=== PATIENT | female | born 1970 | race Two or more races ===

== ENCOUNTER 2017-10-21 14:35 | Emergency (ER) | payer OTHER ==
--- NOTE | 2017-10-21 15:09 | EDPHY ---
General - History Smoking Status: Never smoked Time Seen by Provider: 10/21/17 15:04 Narrative: CHIEF COMPLAINT: Chest pain, leg pain, nausea, fever HISTORY OF PRESENT ILLNESS: Patient presents with complaints of chest pain, nausea, epigastric abdominal pain, leg pain and weakness. All of the symptoms except nausea started 4 days ago. These were gradual onset. Constant duration. They do wax and wane. Mild -to-moderate at times. Chest pain is retrosternal and does radiate to the back. Weakness of the lower legs is described as mild and as if they felt very heavy. She has been able to ambulate. She has some nausea that developed yesterday without vomiting. She has felt subjectively febrile. Mild headache yesterday. Today she feels only some epigastric discomfort and feels very concerned, scared about her symptoms. No modifying factors. No trauma or injury. No recent travel or surgery. No history of venous thrombolic event or NE. She reports history of aortic regurgitation with echocardiogram done 2 years ago. No cardiology follow-up. No other associated complaints or modifying factors HPI obtained using the hospital's certified Martiniquais vehicle trimmer at bedside in patient's room. REVIEW OF SYSTEMS: 10 systems were reviewed and negative with the exception of the elements mentioned in the history of present illness. PCP: Dr. Ga Dillard SPECIALISTS: None PAST MEDICAL HISTORY: Hypertension, [id number] diabetic, aortic regurgitation, depression PAST SURGICAL HISTORY: Cholecystectomy. x1 SOCIAL HISTORY: Never smoker. Lives independently. Occasionally works FAMILY HISTORY: Noncontributory EXAMINATION General Appearance: Alert, no distress, tearful Head: normocephalic, atraumatic Eyes: Pupils equal and round, no conjunctival pallor or injection ENT, Mouth: Mucous membranes moist Neck: Normal inspection, supple, non-tender Respiratory: Lungs are clear to auscultation. No wheezing rhonchi or crackles Cardiovascular: Regular rate and rhythm. Grade 1 diastolic murmur. Excellent signs of perfusion extremities. Gastrointestinal: Obese Abdomen is soft and nondistended. There is mild epigastric tenderness. Bowel sounds are appreciated in all 4 quadrants with no tympany rigidity. No palpable mass. No guarding. Back: non-tender, no bony abnormalities Neurological: A&O, nonfocal, normal gait Skin: Warm and dry, no rash Extremities: Nontender, no pedal edema Psychiatric: Mood and affect normal DIFFERENTIAL DIAGNOSES: Including but not limited to ACS, PE, pneumonia, dissection, pericarditis, pneumonia, gastritis, pancreatitis MDM: 3:00 p.m. Chest and epigastric pain of 3-4 days duration with some complaints of weakness. Neuro exam is within normal limits with no appreciated weakness. Her sensory is symmetric. She is mildly tachycardic and appears to be somewhat anxious and tearful. I have ordered cardiac laboratory studies. EKG has been obtained and reviewed by Dr. Cannon. Other than mild tachycardia, she is in no acute distress vital signs stable. She is afebrile. Heart score: 1, low risk 4:00 p.m. Laboratory studies are all within normal limits with mild elevated glucose. Troponin is negative. Chest x-ray unremarkable. Dr. Cannon has evaluated the patient. He does feel she is stable for discharge home. This did upset her and she became more anxious. Thus we did discuss repeat troponin 2 hr. This will be done at 4:55 p.m.. I have also ordered medications for her possible gastritis/reflux. 5:05 p.m. 2 hr, repeat troponin is negative. It is actually slightly lower than the original troponin. I re-evaluated the patient at this time with metal drawer at bedside. She is feeling much better at this time. We did use the shared decision making pathway for VU. She is comfortable with being discharged home. We discussed discharge home with referral to Cardiology and Gastroenterology and she is comfortable this plan. I have answered all of her questions. She will be discharged home stable condition. MDM was discussed using the hospital's certified Martiniquais vehicle trimmer at bedside in patient's room. SUPERVISION: Patient was evaluated and examined in conjunction with my secondary supervising physician as documented. We have both examined the patient. (Nicho Toledo) - Diagnostics Imaging Results: Imaging Impressions Chest X-Ray 10/21/17 15:05 Impression: Hypoventilation. Clear. Discussion: I did evaluate this patient independently. She is well appearing. We agreed to do a 2nd troponin. I also recommend she follow up with gastrology for her heartburn type symptoms and suggested that we start her on a PPI. (Adin Cannon) - Objective Vital Signs: Initial Vital Signs Temperature (C) 37.1 C 10/21/17 14:37 Heart Rate 96 10/21/17 14:37 Respiratory Rate 10/21/17 14:37 Blood Pressure 125/82 H 10/21/17 14:37 O2 Sat (%) 94 10/21/17 14:37 O2 Delivery Mode Room Air Allergies/Adverse Reactions: No Known Allergies Allergy (Verified 10/21/17 14:41) Home Medications: Medication Instructions Recorded Lisinopril [Zestril 20 mg (*)] 40 mg PO DAILY 12/18/12 metFORMIN HCL [Glucophage 500 mg 500 mg PO DAILY 12/18/12 (*)] Propranolol HCl [Inderal 20mg (*)] 20 mg PO BID 01/30/16 traZODone [traZODONE 50MG (*)] 50 mg PO HS PRN 02/14/16 Chlorthalidone 10/21/17 Ranitidine HCl [Zantac 75] 75 mg PO BID #30 tablet 10/21/17 Sucralfate [Carafate Oral Liquid 10 ml PO QID PRN #240 ml 10/21/17 100 mg/ml] Laboratory Results: Laboratory Results 10/21/17 14:53 10/21/17 14:53 10/21/17 10/21/17 10/21/17 16:53 14:55 14:53 WBC RBC Hgb Hct MCV MCH MCHC RDW Plt Count MPV Neut % (Auto) Lymph % (Auto) [place] % (Auto) Eos % (Auto) Baso % (Auto) Nucleat RBC Rel Count Absolute Neuts (auto) Absolute Lymphs (auto) Absolute Monos (auto) Absolute Eos (auto) Absolute Basos (auto) Absolute Nucleated RBC Immature Gran % Immature Gran # PT INR APTT D-Dimer Sodium Potassium Chloride Carbon Dioxide Anion Gap BUN Creatinine Estimated GFR Glucose Calcium Total Bilirubin Conjugated Bilirubin Unconjugated Bilirubin AST ALT Alkaline Phosphatase POC Troponin I 0.00 ng/mL ng/mL 0.01 ng/mL ng/mL (0.00-0.08) (0.00-0.08) Total Protein Albumin Lipase Beta HCG, Qual NEGATIVE 10/21/17 10/21/17 10/21/17 14:53 14:53 14:53 WBC 6.94 10^3/uL 10^3/uL (3.80-9.50) RBC 4.42 10^6/uL 10^6/uL (4.18-5.33) Hgb 12.4 g/dL L g/dL (12.6-16.3) Hct 37.5 % L % (38.0-47.0) MCV 84.8 fL fL (81.5-99.8) MCH 28.1 pg pg (27.9-34.1) MCHC 33.1 g/dL g/dL (32.4-36.7) RDW 16.4 % H % (11.5-15.2) Plt Count 323 10^3/uL 10^3/uL (150-400) MPV 10.8 fL fL (8.7-11.7) Neut % (Auto) 67.1 % % (39.3-74.2) Lymph % (Auto) 26.8 % % (15.0-45.0) [place] % (Auto) 5.0 % % (4.5-13.0) Eos % (Auto) 0.4 % L % (0.6-7.6) Baso % (Auto) 0.6 % % (0.3-1.7) Nucleat RBC Rel Count 0.0 % % (0.0-0.2) Absolute Neuts (auto) 4.65 10^3/uL 10^3/uL (1.70-6.50) Absolute Lymphs (auto) 1.86 10^3/uL 10^3/uL (1.00-3.00) Absolute Monos (auto) 0.35 10^3/uL 10^3/uL (0.30-0.80) Absolute Eos (auto) 0.03 10^3/uL 10^3/uL (0.03-0.40) Absolute Basos (auto) 0.04 10^3/uL 10^3/uL (0.02-0.10) Absolute Nucleated RBC 0.00 10^3/uL 10^3/uL (0-0.01) Immature Gran % 0.1 % % (0.0-1.1) Immature Gran # 0.01 10^3/uL 10^3/uL (0.00-0.10) PT 13.7 SEC SEC (12.0-15.0) INR 1.03 (0.83-1.16) APTT 25.2 SEC SEC (23.0-38.0) D-Dimer 0.30 ug/mLFEU ug/mLFEU (0.00-0.50) Sodium 140 mEq/L mEq/L (135-145) Potassium 3.4 mEq/L mEq/L (3.3-5.0) Chloride 105 mEq/L mEq/L (97-110) Carbon Dioxide 26 mEq/l mEq/l (22-31) Anion Gap 9 mEq/L mEq/L (8-16) BUN 23 mg/dL mg/dL (7-23) Creatinine 0.8 mg/dL mg/dL (0.6-1.0) Estimated GFR > 60 Glucose 145 mg/dL H mg/dL (70-100) Calcium 9.7 mg/dL mg/dL (8.5-10.4) Total Bilirubin 0.6 mg/dL mg/dL (0.1-1.4) Conjugated Bilirubin 0.0 mg/dL mg/dL (0.0-0.5) Unconjugated Bilirubin 0.6 mg/dL mg/dL (0.0-1.1) AST 26 IU/L IU/L (14-46) ALT 32 IU/L IU/L (9-52) Alkaline Phosphatase 61 IU/L IU/L (38-126) POC Troponin I Total Protein 7.8 g/dL g/dL (6.3-8.2) Albumin 4.5 g/dL g/dL (3.5-5.0) Lipase 174 IU/L IU/L (23-300) Beta HCG, Qual Medications Given: Discontinued Medications Al Hydroxide/Mg Hydroxide (Maalox Susp) 30 ml PO ONCE ONE Stop: 10/21/17 16:32 Last Admin: 10/21/17 16:56 Dose: 30 ml Famotidine (Pepcid) 20 mg IVP EDNOW ONE Stop: 10/21/17 16:32 Last Admin: 10/21/17 16:54 Dose: 20 mg Hyoscyamine Sulfate (Levsin, Hyomax-Sl) 0.25 mg PO ONCE ONE Stop: 10/21/17 16:32 Last Admin: 10/21/17 16:52 Dose: 0.25 mg Lidocaine (Lidocaine 2% Viscous) 15 ml PO ONCE ONE Stop: 10/21/17 16:32 Last Admin: 08/31/18 16:56 Dose: 15 ml Lorazepam (Ativan Injection) 0.5 mg IVP EDNOW ONE Stop: 10/21/17 16:41 Last Admin: 10/21/17 16:52 Dose: 0.5 mg Point of Care Test Results: Chemistry 10/21/17 10/21/17 16:53 14:55 POC Troponin I 0.00 ng/mL ng/mL 0.01 ng/mL ng/mL (0.00-0.08) (0.00-0.08) Departure - Departure Disposition: Home, Routine, Self-Care Clinical Impression: Epigastric pain Gastritis Qualifiers: Gastritis type: unspecified gastritis Chronicity: acute Gastritis bleeding: without bleeding Qualified Code(s): K29.00 - Acute gastritis without bleeding Chest pain Qualifiers: Chest pain type: unspecified Qualified Code(s): R07.9 - Chest pain, unspecified Condition: Good Instructions: Chest Pain (ED), Peptic Ulcer (ED), Diet for Stomach Ulcers and Gastritis (ED), Epigastric Pain (ED) Additional Instructions: 1. Contact your primary care physician for outpatient follow-up next week. 2. Contact Cardiology and Gastroenterology as provided for outpatient workups 3. Medications as prescribed as needed 4. Return to emergency department for return of chest pain, exertional chest pain, radiating pain, sweating, vomiting or fever 1. Kwesi marialuisa katty de seguimiento con sanchez doctor la proxima semana. 2. Kwesi seguimiento con un Cardiologo y un Gatroenterologo. 3. [place] el medicamento recetado a joi lo necesite 4. Regrese a la baldomero de emergencia si tiene dolor de pecho, dolor en el pecho del exertional, irradiando dolor, sudoracin, vmitos o fiebre. Referrals: Ga Dillard MD [Primary Care Provider] - As per Instructions Rodrick Mcfadden MD [Medical Doctor] - As per Instructions Miguel A Orlando MD [Medical Doctor] - As per Instructions Stand Alone Forms: Work Excuse Prescriptions: Ranitidine HCl [Zantac 75] 75 mg PO BID #30 tablet Sucralfate [Carafate Oral Liquid 100 mg/ml] 10 ml PO QID PRN #240 ml PRN Reason: abdominal pain Print Language: Martiniquais
[2017-10-21 15:12] LABS: PLATELET COUNT 323 10^3/uL (150-400)
[2017-10-21 15:24] LABS: INR 1.03 (0.83-1.16); PROTIME(PATIENT) 13.7 SEC (12.0-15.0)
--- NOTE | 2017-10-21 15:27 | CPEKG ---
Test Reason : OPEN Blood Pressure : / mmHG Vent. Rate : 097 BPM Atrial Rate : 097 BPM P-R Int : 148 ms QRS Dur : 091 ms QT Int : 344 ms P-R-T Axes : 034 -32 013 degrees QTc Int : 437 ms Sinus rhythm Left axis deviation Confirmed by Adin Cannon ([id number]) on 10/21/2017 3:26:34 PM Referred By: Confirmed By:Adin Cannon
[2017-10-21] MEDS ORDERED: HYOSCYAMINE SULFATE 0.125 MG TAB PO ONE (16:31)
[2017-10-21] MEDS ORDERED: MAG HYDROX/AL HYDROX/SIMETH 30 ML UDCUP PO ONE (16:31)
[2017-10-21] MEDS ORDERED: FAMOTIDINE 20 MG/2 ML SDV IVP ONE (16:31)
[2017-10-21] MEDS ORDERED: LIDOCAINE 2% VISCOUS 15 ML UDCUP PO ONE (16:31)
[2017-10-21] MEDS ORDERED: LORazepam 2 MG/ML INJ IVP ONE (16:40)
[2017-10-21 17:03] VITALS: BP 131/79
== END 2017-10-21 17:34 | disposition home or self-care (01) ==
DX: K29.70 Gastritis, unspecified, without bleeding (principal); I10 Essential (primary) hypertension; E11.9 Type 2 diabetes mellitus without complications
CPT/HCPCS: 84484-PO; 96374; J2060

== ENCOUNTER 2018-01-30 08:08 | Emergency (ER) | payer OTHER ==
[2018-01-30 08:19] VITALS: BP 117/57
--- NOTE | 2018-01-30 08:19 | EDPHY ---
H & P Stated Complaint: got aWC injury/got adhesive spray in face accidentally yesterday/nausea Time Seen by Provider: 01/30/18 08:18 - Personal History LMP (Females 10-55): 22-28 Days Ago Current Tetanus Diphtheria and Acellular Pertussis (TDAP): No - Medical/Surgical History Hx Asthma: No Hx Chronic Respiratory Disease: No Hx Diabetes: Yes Hx Cardiac Disease: Yes Hx Renal Disease: No Hx Cirrhosis: No Hx Alcoholism: No Hx HIV/AIDS: No Hx Splenectomy or Spleen Trauma: No Other PMH: htn, NIDDM, DEPRESSION, aortic valve prolapse, cholecystectomy, c section - Social History Smoking Status: Never smoked Constitutional: Initial Vital Signs Temperature (C) 37.1 C 01/30/18 08:10 Heart Rate 88 01/30/18 08:10 Respiratory Rate 17 01/30/18 08:10 Blood Pressure 117/57 L 01/30/18 08:10 O2 Sat (%) 95 01/30/18 08:10 O2 Delivery Mode Room Air Allergies/Adverse Reactions: No Known Allergies Allergy (Verified 01/30/18 08:10) Home Medications: Medication Instructions Recorded Lisinopril [Zestril 20 mg (*)] 40 mg PO DAILY 12/18/12 metFORMIN HCL [Glucophage 500 mg 500 mg PO DAILY 12/18/12 (*)] Propranolol HCl [Inderal 20mg (*)] 20 mg PO BID 01/30/16 traZODone [traZODONE 50MG (*)] 50 mg PO HS PRN 02/14/16 Chlorthalidone 10/21/17 Ranitidine HCl [Zantac 75] 75 mg PO BID #30 tablet 10/21/17 Sucralfate [Carafate Oral Liquid 10 ml PO QID PRN #240 ml 10/21/17 100 mg/ml] Medical Decision Making ED Course/Re-evaluation: CHIEF COMPLAINT: Possible chemical exposure HISTORY OF PRESENT ILLNESS: The patient is a Libyan-speaking 47 y/o female with a history of hypertension and pre-diabetes complaining of facial irritation following limited exposure to an adhesive spray last night. She was cleaning the bathroom last night around 22:30, about 10 hours ago. She grabbed what she thought was a cleaning spray and misted the bathroom. Upon attempting to wipe up the spray, she noticed it was sticky and then read the bottle to discover it was an adhesive spray. She then read that it could be an irritant and started to notice facial tingling and a sticky sensation in her throat with associated nausea. Upon waking this morning, the symptoms were still present, so she came to the ED for evaluation. She currently feels very anxious. She denies headache, dyspnea, blurry vision, facial swelling, chest pain, vomiting, diarrhea. History obtained via [place]-palliative care nurse practitioner. REVIEW OF SYSTEMS: A comprehensive 10 system review of systems is otherwise negative aside from elements mentioned in the history of present illness and medical decision making. PHYSICAL EXAM: HR, BP, O2 Sat, RR. Temp noted General Appearance: Alert, well hydrated, appropriate, and non-toxic appearing. Head: Atraumatic without scalp tenderness or obvious injury Eyes: Pupils equal, round, reactive to light and accommodation, EOMI, no trauma , no injection. Nose: Atraumatic, no rhinorrhea, clear. Throat: There is no erythema or exudates, no lesions, normal tonsils, mucus membranes moist. Neck: Supple, nontender, no lymphadenopathy. Respiratory: No retractions, no distress, no wheezes, and no accessory muscle use. Lungs are clear to auscultation bilaterally. Cardiovascular: Regular rate and rhythm, no murmurs, rubs, or gallops. Good capillary refill all extremities. Gastrointestinal: Abdomen is soft, nontender, non-distended, no masses, no rebound, no guarding, no peritoneal signs. Musculoskeletal: Normal active ROM of all extremities, atraumatic. Neurological: Alert, appropriate, and interactive. The patient has non-focal cranial nerves, motor, sensory, and cerebellar exam. Skin: No rashes, good turgor, no nodules on palpation. Past medical history: Pre-diabetes - Metformin, hypertension, aortic valve prolapse, depression Past surgical history: Cholecystectomy, . Family history: Noncontributory. Social history: Libyan-speaking. Lives in [place]. . Not employed. DIFFERENTIAL DIAGNOSIS: The differential diagnosis for the patient's symptoms included but was not limited to anxiety, chemical exposure, allergic reaction, infectious source. MEDICAL DECISION MAKING: This is a 47 y/o female who presents with anxiety and facial tingling after she accidentally sprayed a bathroom with adhesive spray instead of cleaning spray last night. Apart from appearing anxious, she has a completely normal exam. Reviewed label adhesive spray that patient brought with her. She had no direct contact onto mucosal surfaces and had a very low risk exposure to this agent. Discussed this with the patient via [place] and answered her questions. No further work up indicated at this time. She is comfortable returning home and following up with her PCP as needed. Departure - Departure Disposition: Home, Routine, Self-Care Clinical Impression: Chemical exposure Condition: Good Instructions: Additional Information Additional Instructions: Follow up with your primary care provider as needed. Referrals: Ga Dillard MD [Primary Care Provider] - As per Instructions Report Scribed for: Patric Miller Report Scribed by: Maricruz Regan Date of Report: 01/30/18 Time of Report: 09:28
== END 2018-01-30 09:15 | disposition home or self-care (01) ==
DX: Z77.098 Contact with and (suspected) exposure to other hazardous, chiefly nonmedicinal, chemicals (principal); I10 Essential (primary) hypertension; R73.03 Prediabetes

== ENCOUNTER 2018-05-19 21:08 | Emergency (ER) | payer OTHER ==
[2018-05-19] MEDS ORDERED: ASPIRIN 81 MG CHEWABLE TAB PO ONE (21:58)
--- NOTE | 2018-05-19 22:01 | EDPHY ---
General Time Seen by Provider: 05/19/18 21:57 Narrative: CLINICAL IMPRESSION: Epigastric pain, palpitations ASSESSMENT/PLAN: Patient is a 47-year-old female with a history of hypertension, depression and pre diabetes who presents to the emergency department with epigastric pain that started yesterday when she was doing house chores. Patient is afebrile and not toxic appearing, she was in no acute distress. The patient was placed on court recording monitor and and ECG was immediately obtained- revealed normal sinus rhythm at a rate of 71 no evidence of acute ischemia; reviewed by Dr. Miller and myself. Symptoms have been ongoing for greater than 6 hr, troponin was 0. CBC with no evidence of leukocytosis, she was noted to have mild anemia consistent with previous levels in the past. BMP with no significant metabolic abnormality or evidence of acute kidney injury. Hepatic panel and Lipase grossly normal. negative. TSH and magnesium also within normal limits. Patient with a very reassuring workup in the emergency department, there were no findings to suggest ACS, arrhythmia or thyrotoxicosis. Patient had improvement of her symptoms with a GI cocktail. Query PUD or gastritis as underlying etiology. Other life-threatening etiologies such as pulmonary embolism, aortic dissection, Katherine-Bruno tear, boerhaave syndrome, pancreatitis, mediastinitis, myocarditis and pericarditis have been considered however low clinical suspicion. On repeat examination the patient reports that she is feeling better. She is very reassured by findings today. Patient given prescription for Omeprazole, she is well established with her primary care provider and will call 1st thing Tuesday morning to schedule an appointment for repeat examination. Conservative return precautions discussed- she will return for any symptom concern, particularly chest pain, shortness of breath, rapid or irregular heartbeat, unusual fatigue, cough, coughing up blood or discolored sputum, swelling, dizziness, weakness, fainting, nausea, vomiting, abdominal pain, fever, chills, headache, or for any other new, worsening, or worrisome symptoms. Patient verbalizes understanding and she is in agreement with plan. DIFFERENTIAL DX: Epigastric pain including but not limited to biliary colic, cholecystitis, peptic ulcer disease, pancreatitis, and gastroenteritis. ED COURSE: 2199: Case reviewed with Dr. Miller 2201: ECG reviewed by myself and Dr. Miller, reveals sinus rhythm at a rate of 71, no evidence of acute ischemia. CHIEF COMPLAINT: Epigastric pain, palpitations HPI: Patient is a 47-year-old female with a history of hypertension, depression and pre diabetes who presents to the emergency department with epigastric pain that started yesterday when she was doing house chores. Patient reports she had a sudden onset of epigastric pain, unprovoked. It waxed and waned throughout the day and ultimately went away in the evening. She started to experience recurrent epigastric pain that started this morning and has been constant, also described as stabbing in nature. She endorses that both of these episodes were preceded by palpitations. She denies any left-sided chest pain, associated diaphoresis or radiation of pain. She denies any palpitations in the emergency department. She has had no change in appetite, she denies any fever, nausea or vomiting. She does report a history of a similar episode several years prior however lasted for a brief period of time and resolved on its own, she was never evaluated for this. Abdominal surgery includes remote cholecystectomy, she denies drinking alcohol. She denies any lower abdominal pain, urinary symptoms to include dysuria, hematuria or frequency, also denies any change in bowel habits. PMH: Hypertension, depression, prediabetes Pertinent Past Surgical History: Cholecystectomy Family History: Noncontributory Social History: Denies illicit drug use or smoking REVIEW OF SYSTEMS: All other systems negative Constitutional: No fever, no chills, appetite change. Eyes: No discharge, vision change ENT: No sore throat, congestion, ear pain. Cardiovascular: Palpitations. Respiratory: No cough, no shortness of breath. Gastrointestinal: Epigastric pain, no vomiting, diarrhea. Genitourinary: No hematuria, dysuria, flank pain, pelvic pain. Musculoskeletal: No back pain, joint swelling, joint pain, myalgias. Skin: No rashes, color change. Neurological: No headache, dizziness, weakness. PHYSICAL EXAM: General Appearance: Obese, well-appearing and in no acute distress. HENT: Normocephalic, atraumatic. Bilateral external ears are normal. Bilateral tympanic membranes are normal with pearly fowler reflex. Nares are clear, mucosa is pink. Oropharynx is clear, uvula is midline. There is no tonsillar enlargement or exudate. The dentition is normal.] Eyes: PERRLA, EOMI intact. Conjunctiva pink, no pallor or injection Neck: Supple, nontender, no lymphadenopathy, no midline pain, FROM, no meningismus. Respiratory: There are no retractions, lungs are clear to auscultation. Cardiac: Regular rate and rhythm, no murmurs or gallops. Gastrointestinal: Abdomen is obese however soft soft, bowel sounds normal, no masses/hernia. Patient has reproducible tenderness to palpation in the epigastrium, no rigidity , guarding or focal peritoneal findings. Neurological: Alert and oriented x 3, CN 2-12 grossly intact, normal gait no ataxia, DTR's intact, normal sensation and strength Skin: Warm, dry, no rashes, no nodules on palpation. Musculoskeletal: Extremities are symmetrical, full range of motion, no tenderness, deformity, swelling, or erythema. Psychiatric: Patient is oriented X 3, there is no agitation. MEDICAL DECISION MAKING: Patient was seen independently. Secondary supervising physician at time of evaluation was Dr. Miller, he did not evaluate this patient. Diagnosis: Epigastric pain, palpitations. New, requires workup Summary: See Assessment and Plan for summary of ED visit Clinical lab tests: ordered / reviewed. Independent visualization of images, tracing, or specimens: Yes. Decision to obtain medical records or history from someone other than the patient: No Review / Summarize previous medical records: Yes Discussed patient with another provider: Yes, Dr. Miller and Dr. Seth Patient Progress: Stable, discharged. - History Smoking Status: Never smoked - Objective Vital Signs: Initial Vital Signs Temperature (C) 37.3 C 05/19/18 21:23 Heart Rate 83 05/19/18 21:23 Respiratory Rate 16 05/19/18 21:23 Blood Pressure 139/96 H 05/19/18 21:23 O2 Sat (%) 96 05/19/18 21:23 O2 Delivery Mode Room Air Allergies/Adverse Reactions: No Known Allergies Allergy (Verified 01/30/18 08:10) Home Medications: Medication Instructions Recorded Lisinopril [Zestril 20 mg (*)] 40 mg PO DAILY 12/18/12 metFORMIN HCL [Glucophage 500 mg 500 mg PO DAILY 12/18/12 (*)] Propranolol HCl [Inderal 20mg (*)] 20 mg PO BID 01/30/16 Chlorothiazide 05/19/18 DULoxetine 05/19/18 Hydroxyzine HCl 05/19/18 Omeprazole 20 mg PO DAILY #30 tablet. 05/19/18 Laboratory Results: Laboratory Results 05/19/18 21:45 05/19/18 21:45 Medications Given: Discontinued Medications Al Hydroxide/Mg Hydroxide (Maalox Susp) 30 ml PO EDNOW ONE Stop: 05/19/18 21:47 Last Admin: 05/19/18 22:47 Dose: 30 ml Aspirin (Aspirin) 324 mg PO EDNOW ONE Stop: 05/19/18 21:59 Last Admin: 05/19/18 22:06 Dose: 324 mg Hyoscyamine Sulfate (Levsin, Hyomax-Sl) 0.25 mg PO EDNOW ONE Stop: 05/19/18 21:47 Last Admin: 05/19/18 22:47 Dose: 0.25 mg Lidocaine (Lidocaine 2% Viscous) 15 ml PO EDNOW ONE Stop: 05/19/18 21:47 Last Admin: 05/19/18 22:47 Dose: 15 ml Point of Care Test Results: Chemistry 05/19/18 22:07 POC Troponin I 0.00 ng/mL ng/mL (0.00-0.08) Departure - Departure Disposition: Home, Routine, Self-Care Clinical Impression: Epigastric pain, Heart palpitations Condition: Good Instructions: Heart Palpitations (ED), Epigastric Pain (ED) Additional Instructions: DISCHARGE INSTRUCTIONS FROM YOUR DOCTOR Thank you for visiting our emergency department today. Please keep in mind that discharge from the emergency department does not mean that there is nothing wrong - it simply means that we have not identified an emergency condition that requires further evaluation or treatment in the hospital. You should always plan to follow up with primary care for re-evaluation of your condition in the next 2-3 days. The exact cause of your pain was not identified. It could be due to gastroesophageal reflux. The tests we have performed are essentially normal. Serious causes of chest pain are still possible, therefore. If the pain persists tomorrow, you should return for a recheck. Rest, eat healthy well balanced low carbohydrate diet and pursue exercise/ activity as allowed by your primary care provider or aquatic physiotherapist. You have been prescribed omeprazole, take as directed. You may start taking this tomorrow. Try and reduce stress as much as possible. Continue your regular medications as prescribed. Schedule a follow-up appointment with your primary care provider in the next 1- 2 days for close re-evaluation. Return for any symptom concern, particularly chest pain, shortness of breath, rapid or irregular heartbeat, unusual fatigue, cough, coughing up blood or discolored sputum, swelling, dizziness, weakness, fainting, nausea, vomiting, abdominal pain, fever, chills, headache, or for any other new, worsening, or worrisome symptoms. People present with illnesses and injuries in different ways, and it is always possible that we have missed something. You may always return for re-evaluation if symptoms worsen or if they are not improving or if you develop new/different symptoms. Again, thank you for choosing our emergency department. We hope that you feel better. Referrals: Ga Dillard MD [Primary Care Provider] - 2-3 days without fail Prescriptions: Omeprazole 20 mg PO DAILY #30 tablet.
[2018-05-19 22:07] LABS: PLATELET COUNT 323 10^3/uL (150-400)
[2018-05-19] MEDS: HYOSCYAMINE SULFATE 0.125 MG TAB PO ONE ×2 (22:08→22:47)
[2018-05-19] MEDS: LIDOCAINE 2% VISCOUS 15 ML UDCUP PO ONE ×2 (22:08→22:47)
[2018-05-19] MEDS: MAG HYDROX/AL HYDROX/SIMETH 30 ML UDCUP PO ONE ×2 (22:08→22:47)
[2018-05-19 23:27] VITALS: BP 132/86
== END 2018-05-19 23:49 | disposition home or self-care (01) ==
DX: R10.13 Epigastric pain (principal); R00.2 Palpitations; I10 Essential (primary) hypertension; F32.9 Major depressive disorder, single episode, unspecified
CPT/HCPCS: 84484-ER